=== PATIENT | female | born 1980 | race African-American/Black ===

== ENCOUNTER 2018-07-14 22:41 | Emergency (ER) | payer OTHER, MEDICAID ==
[~2018-07-14] VITALS: Ht 165.1 cm; Wt 80.7 kg
[2018-07-15] MEDS ORDERED: BACITRACIN ZINC OINT UDPKT TOP ONE (01:45)
[2018-07-15] MEDS ORDERED: LIDOCAINE HCL/PF 1% 10 MG/ML 5ML VIAL IJ ONE (01:45)
[2018-07-15] MEDS ORDERED: IBUPROFEN 800MG TABLET PO ONE (03:00)
[2018-07-15 04:16] VITALS: BP 134/88
== END 2018-07-15 04:21 | disposition home or self-care (01) ==
LOC: ER 22:41
DX: S00.551A Superficial foreign body of lip, initial encounter (principal); F12.10 Cannabis abuse, uncomplicated; F17.200 Nicotine dependence, unspecified, uncomplicated; X58.XXXA Exposure to other specified factors, initial encounter; Y93.89 Activity, other specified; Y92.89 Other specified places as the place of occurrence of the external cause; Y99.8 Other external cause status
CPT/HCPCS: 99284; J3490

== ENCOUNTER 2018-11-02 18:46 | Emergency (ER) | payer OTHER ==
[~2018-11-02] VITALS: Ht 162.6 cm; Wt 79.0 kg
[2018-11-02] MEDS ORDERED: METHOCARBAMOL 750MG TABLET PO STA (19:25)
[2018-11-02] MEDS ORDERED: KETOROLAC 60MG/2ML VIAL IM ONE (19:30)
[2018-11-02] MEDS ORDERED: MORPHINE SULFATE 10 MG/ML CPJ IM ONE (19:30)
[2018-11-02 19:54] VITALS: BP 140/87
[2018-11-02] MEDS ORDERED: METHOCARBAMOL 750MG TABLET PO NR (20:00)
== END 2018-11-02 20:45 | disposition home or self-care (01) ==
LOC: ER 18:46
DX: S29.012A Strain of muscle and tendon of back wall of thorax, initial encounter (principal); G40.909 Epilepsy, unspecified, not intractable, without status epilepticus; F12.10 Cannabis abuse, uncomplicated; F17.210 Nicotine dependence, cigarettes, uncomplicated; X50.0XXA Overexertion from strenuous movement or load, initial encounter; Y93.89 Activity, other specified; Y92.89 Other specified places as the place of occurrence of the external cause; Y99.8 Other external cause status
CPT/HCPCS: 81025; 96372; 99283; J1885; J2270

== ENCOUNTER 2018-12-27 08:56 | Emergency (ER) | payer OTHER ==
[~2018-12-27] VITALS: Ht 162.6 cm; Wt 78.0 kg
[2018-12-27] MEDS ORDERED: DEXAMETHASONE 10 MG/ML VIAL IM ONE (13:00)
[2018-12-27] MEDS ORDERED: KETOROLAC 60MG/2ML VIAL IM ONE (13:00)
[2018-12-27 14:20] VITALS: BP 164/97
== END 2018-12-27 14:20 | disposition home or self-care (01) ==
LOC: ER 08:56
DX: M54.12 Radiculopathy, cervical region (principal); F17.200 Nicotine dependence, unspecified, uncomplicated; F12.10 Cannabis abuse, uncomplicated
CPT/HCPCS: 81025; 96372; 99283; J1100; J1885; Z7610

== ENCOUNTER 2019-05-01 10:57 | Emergency (ER) | payer OTHER ==
[~2019-05-01] VITALS: Ht 162.6 cm; Wt 76.0 kg
[2019-05-01] MEDS ORDERED: ACETAMINOPHEN 500MG TABLET PO ONE (12:30)
[2019-05-01 14:44] VITALS: BP 136/94
[2019-05-01] MEDS ORDERED: IBUPROFEN 600MG TABLET PO ONE (14:45)
== END 2019-05-01 14:58 | disposition home or self-care (01) ==
LOC: ER 10:57
DX: F07.81 Postconcussional syndrome (principal); S09.90XA Unspecified injury of head, initial encounter; G40.909 Epilepsy, unspecified, not intractable, without status epilepticus; F41.9 Anxiety disorder, unspecified; F12.10 Cannabis abuse, uncomplicated; Y00.XXXA Assault by blunt object, initial encounter; Y93.89 Activity, other specified; Y92.89 Other specified places as the place of occurrence of the external cause
CPT/HCPCS: 70486; 81025; 99284